=== PATIENT | female | born 1995 | race Caucasian/White ===

== ENCOUNTER 2022-01-29 22:10 | Inpatient (IN) | payer BC ==
[~2022-01-29] VITALS: Ht 160 cm; Wt 63.0 kg
[2022-01-30 10:08] LABS: HEMOGLOBIN 13.3 gm/dl (12.3-15.3); RED BLOOD COUNT 4.26 M/UL (4.00-5.10); WHITE BLOOD COUNT 20.4 K/UL (4.5-11.0)
[2022-01-31] MEDS ORDERED: MINI PRENATAL1 EACH PO (07:11)
[2022-02-01] MEDS ORDERED: HYDROCODON-ACE1 EAC4 PO (11:52)
[2022-02-01] MEDS ORDERED: IBUPROFEN600 MG PO (11:52)
[2022-02-01] MEDS ORDERED: DOCUSATE SODIU100 MG PO (11:52)
== END 2022-02-01 18:29 | disposition home or self-care (01) | DRG 807 ==
LOC: GENOP 22:10 → OB 22:10 → GENOP 01-30 09:49 → OB 01-30 20:39
PROVIDERS: ADMIT Obstetrics & Gynecology
PROC: 10907ZC Drainage of Amniotic Fluid, Therapeutic from Products of Conception, Via Natural or Artificial Opening (ICD-10-PCS; principal; 2022-01-30)
PROC: 10E0XZZ Delivery of Products of Conception, External Approach (ICD-10-PCS; 2022-01-30)
PROC: 0KQM0ZZ Repair Perineum Muscle, Open Approach (ICD-10-PCS; 2022-01-30)
PROC: 3E033VJ Introduction of Other Hormone into Peripheral Vein, Percutaneous Approach (ICD-10-PCS; 2022-01-30)
PROC: 3E0234Z Introduction of Serum, Toxoid and Vaccine into Muscle, Percutaneous Approach (ICD-10-PCS; 2022-01-30)
DX: O69.81X0 Labor and delivery complicated by cord around neck, without compression, not applicable or unspecified (principal); Z37.0 Single live birth; Z3A.39 39 weeks gestation of pregnancy; O70.1 Second degree perineal laceration during delivery; Z20.822 Contact with and (suspected) exposure to COVID-19; Z23 Encounter for immunization
CPT/HCPCS: 36415; 81001; 82800; 85014; 85018; 85025; 90715; 96365; J2300; J2590; U0002